=== PATIENT | female | born 2000 | race African-American/Black ===

== ENCOUNTER 2018-12-27 19:31 | Emergency (ER) | payer SELFPAY ==
[~2018-12-27] VITALS: Ht 154.9 cm; Wt 56.7 kg
[2018-12-27 20:00] VITALS: BP 143/78
[2018-12-27] MEDS ORDERED: IBUP-1007 PO (20:02)
[2018-12-27] MEDS ORDERED: HYDR-3164 PO (20:02)
[2018-12-27] MEDS ORDERED: ORPH100T PO (20:02)
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
[2018-12-27] MEDS ORDERED: HYDROcodone/APAP 5/325MG 1 TAB TABLET PO ONE (20:15)
[2018-12-27] MEDS ORDERED: IBUPROFEN 600 MG TABLET. PO ONE (20:15)
== END 2018-12-27 20:34 | disposition home or self-care (01) ==
LOC: ER 19:31
DX: S46.812A Strain of other muscles, fascia and tendons at shoulder and upper arm level, left arm, initial encounter (principal); M79.605 Pain in left leg; M54.2 Cervicalgia; V40.6XXA Car passenger injured in collision with pedestrian or animal in traffic accident, initial encounter; Y93.89 Activity, other specified; Y92.410 Unspecified street and highway as the place of occurrence of the external cause; Y99.8 Other external cause status
CPT/HCPCS: 99283